=== PATIENT | female | born 1945 | race Two or more races ===

== ENCOUNTER 2016-07-16 20:10 | Emergency (ER) | payer MEDICARE ==
[~2016-07-16 20:10] MED LIST: CALCIUM CARBON600 M2 PO; CENTRUM SILVER1 EAC3 PO; EFFEXOR XR37.5 M1 PO; METHADONE HCL10 M1 PO; NORCO 5-325 TA1 EACH PO; OMEPRAZOLE20 M4 PO; PREMARIN0.625 MG/T PO; SOMA250 M1 PO; TRAMADOL HCL50 M2 PO
[2016-07-16 21:50] LABS: BASO % 0.2 % (0-2); EOS % 1.2 % (0-7); EOSINOPHIL ABSOLUTE COUNT 0.1 tho/cmm (0.0-0.7); HCT-HEMATOCRIT 31.9 % (34.0-49.0); HGB-HEMOGLOBIN 10.7 gm/dl (12.0-15.5); IMMATURE GRANULOCYTES ABSOLUTE 0.01 tho/cmm (0-0.03); IMMATURE GRANULOCYTES PERCENT 0.2 % (0-0.3); LYMPH % 37.1 % (20-45); LYMPH ABSOLUTE COUNT 2.3 tho/cmm (0.8-4.5); MCH (MEAN CORPUSCULAR HGB) 29.1 pg (28.0-32.0); MCHC MEAN CORPUSCULAR HGB CONC 33.5 % (32.0-36.0); MCV (MEAN CELL VOLUME) 86.7 fl (82.0-96.0); MEAN PLATELET VOLUME 10.2 cmc (9.4-12.4); MONO % 5.6 % (0-12); MONOCYTE ABSOLUTE COUNT 0.3 tho/cmm (0.0-1.2); NEUTROPHIL ABSOLUTE COUNT 3.4 tho/cmm (1.6-8.0); NEUTROPHIL-AUTOMATED 3.4 tho/cmm (1.6-8.0); NEUTROPHILS % 55.7 % (40-80); PLATELET COUNT 247 tho/cmm (150-450); RED BLOOD COUNT 3.68 mil/cmm (4.00-5.20); RED CELL DISTRIBUTION WIDTH 14.5 % (12.4-16.4); WHITE BLOOD COUNT 6.1 tho/cmm (4.0-10.0)
[2016-07-16 22:08] LABS: ALB/GLOB RATIO 0.8 (0.8-2.0); ALBUMIN 2.9 g/dl (3.5-5.0); ALKALINE PHOSPHATASE 73 U/L (33-138); ALT/SGPT 15 U/L (12-78); ANION GAP 12 mmol/L (0-20); AST/SGOT 16 U/L (10-40); BILIRUBIN,TOTAL 0.2 mg/dl (0-1.5); BLOOD UREA NITROGEN 16 mg/dl (6-24); CALCIUM 8.1 mg/dl (8.5-10.5); CARBON DIOXIDE-VENOUS 25 mmol/L (22-32); CHLORIDE 109 mmol/l (96-110); CREATININE 1.28 mg/dl (0.50-1.10); GLUCOSE 98 mg/dL (70-110); LIPASE 254 U/L (73-393); POTASSIUM 3.5 mmol/L (3.7-5.1); SODIUM 142 mmol/L (135-145); eGFR VALUE FOR BLACK 49 mL/Min
[2016-07-16 22:38] LABS: URINE BILIRUBIN NEGATIVE (NEG); URINE BLOOD MODERATE (NEG); URINE GLUCOSE (UA) NEGATIVE (NEG); URINE KETONE NEGATIVE (NEG); URINE LEUKOCYTE ESTERASE NEGATIVE (NEG); URINE NITRITE NEGATIVE (NEG); URINE PROTEIN NEGATIVE (NEG)
[2016-07-16 22:39] LABS: URINE APPEARANCE HAZY; URINE COLOR YELLOW
[2016-07-16] MEDS ORDERED: LYRICA100 MG/CAP PO (22:43)
[2016-07-16] MEDS ORDERED: CALCIUM CARBON600 M2 PO (22:45)
[2016-07-16] MEDS ORDERED: VITAMIN D31000 UNI3 PO (22:45)
[2016-07-16] MEDS ORDERED: TRICOR145 M2 PO (22:45)
[2016-07-16] MEDS ORDERED: ASPIRIN EC81 MG PO (22:46)
[2016-07-16] MEDS ORDERED: NEPHROCAPS SOFTG1 M1 PO (22:46)
[2016-07-16] MEDS ORDERED: CENTRUM MULTIG80 MCG PO (22:46)
[2016-07-16] MEDS ORDERED: LASIX20 M1 PO (22:47)
[2016-07-16] MEDS ORDERED: PREMARIN1.25 M1 PO (22:47)
[2016-07-16] MEDS ORDERED: OMEPRAZOLE20 M3 PO (22:47)
[2016-07-16 22:48] LABS: URINE WBC 0 /[HPF] (0-5)
[2016-07-16] MEDS ORDERED: EFFEXOR XR150 M1 PO (22:48)
[2016-07-16] MEDS ORDERED: VITAMIN C500 M3 PO (22:48)
[2016-07-16 22:49] LABS: URINE BACTERIA 1+
== END 2016-07-17 00:10 ==
LOC: EDMED 20:10
PROVIDERS: Emergency Medicine
DX: R10.13 Epigastric pain (principal); R31.9 Hematuria, unspecified; I10 Essential (primary) hypertension; F17.200 Nicotine dependence, unspecified, uncomplicated; Z90.49 Acquired absence of other specified parts of digestive tract; Z90.710 Acquired absence of both cervix and uterus
CPT/HCPCS: J1170; J2405; J7030